=== PATIENT | male | born 1960 | race Caucasian/White ===

== ENCOUNTER 2017-05-26 19:05 | Emergency (ER) | payer OTHER ==
[~2017-05-26] VITALS: Ht 165.1 cm; Wt 80.0 kg
[2017-05-26 22:55] LABS: BASOPHILS % (AUTO) 0.6 % (0.0-2.0); EOSINOPHILS % (AUTO) 0.7 % (1.0-6.0); HEMATOCRIT 40.4 % (41-53); HEMOGLOBIN 14.3 g/dL (13.5-17.5); LYMPHOCYTES # (AUTO) 1.7 K/uL (1.0-4.8); LYMPHOCYTES % (AUTO) 22.6 % (22.0-44.0); MEAN CORPUSCULAR HEMOGLOBIN 30.6 pg (26.0-34.0); MEAN CORPUSCULAR HGB CONC 35.3 G/dL (31.0-37.0); MEAN CORPUSCULAR VOLUME 87 fL (80-100); MONOCYTES # (AUTO) 0.5 K/uL (0.1-1.0); NEUTROPHILS # (AUTO) 5.3 K/uL (1.8-7.7); NEUTROPHILS % (AUTO) 70.1 % (40.0-70.0); PLATELET COUNT (AUTO) 244 K/uL (150-450); RED BLOOD CELL COUNT(AUTO) 4.67 MIL/uL (4.50-5.90); RED CELL DISTRIBUTION WIDTH 11.9 % (11.5-14.5); WHITE BLOOD COUNT (AUTO) 7.6 K/uL (4.5-11.0)
[2017-05-26 23:05] LABS: ANION GAP 7 mmol/L (8-16); CALCIUM, TOTAL 9.3 mg/dL (8.8-10.5); CARBON DIOXIDE 31 mmol/L (22-29); CHLORIDE 100 mmol/L (98-107); CREATININE 0.93 mg/dL (0.60-1.30); GLOMERULAR FILTR. RATE CALC > 60 mL/min (>60); POTASSIUM 3.7 mmol/L (3.5-5.1); SODIUM SERUM 138 mmol/L (136-145); UREA NITROGEN, BLOOD 10 mg/dL (7-18)
[2017-05-26 23:46] VITALS: BP 163/100
== END 2017-05-26 23:50 | disposition home or self-care (01) ==
LOC: EMS 19:08
DX: S09.90XA Unspecified injury of head, initial encounter (principal); R42 Dizziness and giddiness; I10 Essential (primary) hypertension; W22.8XXA Striking against or struck by other objects, initial encounter; Y93.89 Activity, other specified; Y92.89 Other specified places as the place of occurrence of the external cause; Y99.0 Civilian activity done for income or pay
CPT/HCPCS: 70450; 99285

== ENCOUNTER 2019-05-16 17:13 | Emergency (ER) | payer OTHER ==
[~2019-05-16] VITALS: Ht 170.2 cm; Wt 75.0 kg
[2019-05-16] MEDS ORDERED: HYDR25TA PO (17:53)
[2019-05-16 21:01] VITALS: BP 155/79
== END 2019-05-16 21:05 | disposition home or self-care (01) ==
LOC: EMS 17:14
DX: S30.0XXA Contusion of lower back and pelvis, initial encounter (principal); I10 Essential (primary) hypertension; W10.9XXA Fall (on) (from) unspecified stairs and steps, initial encounter; Y93.89 Activity, other specified; Y92.89 Other specified places as the place of occurrence of the external cause; Y99.8 Other external cause status
CPT/HCPCS: 72220

== ENCOUNTER 2021-02-09 14:15 | Emergency (ER) | payer OTHER ==
[~2021-02-09] VITALS: Ht 170.2 cm; Wt 80.0 kg
[~2021-02-09 14:15] MED LIST: HYDR25TA2 PO
[2021-02-09 17:48] VITALS: BP 165/89
== END 2021-02-09 17:49 | disposition home or self-care (01) ==
LOC: EMS 14:15
DX: S00.83XA Contusion of other part of head, initial encounter (principal); S20.212A Contusion of left front wall of thorax, initial encounter; S10.93XA Contusion of unspecified part of neck, initial encounter; I10 Essential (primary) hypertension; F17.210 Nicotine dependence, cigarettes, uncomplicated; Y04.2XXA Assault by strike against or bumped into by another person, initial encounter; Y93.89 Activity, other specified; Y92.89 Other specified places as the place of occurrence of the external cause; Y99.8 Other external cause status
CPT/HCPCS: 70450; 71120; 99284